=== PATIENT | female | born 1990 | race Native Hawaiian/Other Pacific Islander ===

== ENCOUNTER 2016-06-23 20:22 | Emergency (ER) | payer OTHER ==
[~2016-06-23] VITALS: Ht 177.8 cm; Wt 81.6 kg
[2016-06-23 21:00] LABS: PLATELET COUNT 237 K/uL (152-353)
[2016-06-23 21:16] LABS: POTASSIUM 3.6 mmol/L (3.6-5.2); SODIUM 135 mmol/L (136-145)
[2016-06-23 23:37] VITALS: BP 135/72; TEMP 98.9
== END 2016-06-23 23:38 | disposition home or self-care (01) ==
LOC: ED 20:22
PROVIDERS: Emergency Medicine
DX: K27.9 Peptic ulcer, site unspecified, unspecified as acute or chronic, without hemorrhage or perforation (principal); B96.81 Helicobacter pylori [H. pylori] as the cause of diseases classified elsewhere
CPT/HCPCS: 80053; 80307; 81000; 81025; 85027; 86318; 99283; G0479; Q9963

== ENCOUNTER 2019-06-26 13:05 | Emergency (ER) | payer OTHER ==
[~2019-06-26] VITALS: Ht 177.8 cm; Wt 79.4 kg
[2019-06-26 14:13] LABS: PLATELET COUNT 253 K/uL (152-353)
[2019-06-26 14:16] LABS: POTASSIUM 3.8 mmol/L (3.6-5.2)
[2019-06-26 15:43] VITALS: BP 115/76; TEMP 97.2
== END 2019-06-26 15:46 | disposition home or self-care (01) ==
LOC: ED 13:05
PROVIDERS: Emergency Medicine
DX: R51 Headache (principal); S39.012A Strain of muscle, fascia and tendon of lower back, initial encounter
CPT/HCPCS: 80053; 80307; 85027; 96372; 99283; J2175; J2405